=== PATIENT | female | born 1980 | race Caucasian/White ===

== ENCOUNTER 2023-06-01 15:17 | Emergency (ER) | payer BC ==
[~2023-06-01] VITALS: Ht 157.5 cm; Wt 71.2 kg
[2023-06-01 15:23] VITALS: BP 122/71; PULSE 90; RESP 20; TEMP 98.8; O2SAT 100
[2023-06-01] MEDS ORDERED: methocarbamoL 500 MG TAB PO STA (15:47)
[2023-06-01] MEDS ORDERED: KETOROLAC 30 MG/ML VIAL IM ONE (15:50)
[2023-06-01 16:20] VITALS: BP 122/71; PULSE 90; RESP 20; TEMP 98.8; O2SAT 100
[2023-06-01] MEDS ORDERED: IBUP-2213 PO (17:49)
[2023-06-01] MEDS ORDERED: METH-1681 PO (17:49)
[2023-06-01] MEDS ORDERED: LID5T TP (17:49)
== END 2023-06-01 18:10 | disposition home or self-care (01) ==
LOC: MED 15:17
DX: S01.81XA Laceration without foreign body of other part of head, initial encounter (principal); S29.012A Strain of muscle and tendon of back wall of thorax, initial encounter; S60.222A Contusion of left hand, initial encounter; S60.221A Contusion of right hand, initial encounter; S20.212A Contusion of left front wall of thorax, initial encounter; Z98.890 Other specified postprocedural states; Z79.899 Other long term (current) drug therapy; Z79.1 Long term (current) use of non-steroidal anti-inflammatories (NSAID); V49.9XXA Car occupant (driver) (passenger) injured in unspecified traffic accident, initial encounter; Y93.89 Activity, other specified; Y92.410 Unspecified street and highway as the place of occurrence of the external cause; Y99.8 Other external cause status
CPT/HCPCS: 12011; 71045; 73130; 81025; 93005; 96372; 99284; J1885; Q0092